=== PATIENT | female | born 1990 | race Caucasian/White ===

== ENCOUNTER 2017-10-27 11:23 | Inpatient (IN) | payer BC, OTHER ==
[2017-10-27] MEDS ORDERED: Penicillin G Potassium IV* 5,000,000 UNITS in NS 0.9% 100 ML* 100 ML IVPB ONE (12:17)
--- NOTE | 2017-10-27 12:26 | HP ---
General Information - General Information Maternal Age: 27 Grav: 1 Para: 0 SAB: 0 IEA: 0 Estimated Due Date: 11/02/17 Determined By: LMP Gestational Age in Weeks and Days: 39 Weeks and 1 Days Maternal Blood Type and Rh: O Positive - Results this Serology/RPR Result: Non-Reactive Rubella Result: Immune HBsAg Result: Negative HIV Result: Negative GBS Culture Result: Positive Past Medical History Delivery History Comment: primip Pertinent Past Medical History: Non-Contributory Pertinent Past Surgical History: None Pertinent Family History: Non-Contributory - Antepartal Records Antepartal Records: Reviewed, Uncomplicated Review of Systems Constitutional: Comfortable CV Complaint: No Respiratory: Shortness of Breath: No Genitourinary: Leaking Fluid Musculoskeletal: Contractions Neurological: No Headache Movement: Normal - Comments mild nausea. Soft stool earlier today Exam - Measurements Height: 5 ft 8 in Weight: 190 lb Weight in lbs: 190 Body Mass Index (BMI): 28.8 Pre- Weight: 150 lb Weight Gained This : 40 lbs and 0 ozs - Exam Abdomen: No Upper Quadrant Pain Heart: Normal Rhythm/Heart Sounds HEENT: No Significant Findings Lungs: Clear Bilaterally Reflexes: DTR 2+ Thyroid: No Thyromegaly Other Exam Findings: Breasts: soft, no masses Trace edema of ankles - Abdominal Exam Abdomen Exam Comment: EFW 8.5 lbs - Membranes Membrane Status: SROM Hours Since SROM: SROM 0130 10/27/17 - Ultrasound/Biophysical Profile Ultrasound Status: Not Done EFM Findings - External Monitor Findings Baseline Heart Rate: 135 External Monitor Findings: Accelerations Present, No Pattern of Variable or Late Decelerations, Variability Moderate External Monitor Findings Comment: category 1 Contractions: Regular, Mild, Moderate, 45-90 Seconds Contraction Frequency: every 2-3 minutes Assessment/Plan - Reason for Visit Reason for Visit: SROM, contractions - Obstetrical Risk Factors Obstetrical Risk Factors: GBS Positive - Plan Plan: Active Labor Plan Comment: will admit, start PCN prophylaxis. Anticipate vaginal delivery - Date/Time of Admission Date of Admission: 10/27/17 Time of Admission: 12:27
[2017-10-27 12:57] LABS: ABS Basophils 0 10^3/ul (0-0.2); ABS Eosinophils 0.1 10^3/ul (0-0.6); ABS Lymphocytes 2.1 10^3/ul (1.0-4.8); ABS Monocytes 0.8 10^3/ul (0-0.8); ABS Neutrophils 9.3 10^3/ul (1.5-7.7); ABS Nucleated RBC 0 10^3/ul; Eosinophil % 0.7 % (0-6); Hematocrit 39 % (35-47); Hemoglobin 13.2 g/dl (12.0-16.0); Mean Corpuscular HGB Conc 34 g/dl (31-36); Mean Corpuscular Hemoglobin 27 pg (27-31); Mean Corpuscular Volume 80 fL (80-97); Mean Platelet Volume 8 um3 (7.4-10.4); Nucleated Red Blood Cells % 0.1; Platelet Count 205 10^3/ul (150-450); Red Blood Count 4.89 10^6/ul (4.0-5.4); Red Cell Distribution Width 13 % (10.5-15); White Blood Count 12.3 10^3/ul (3.5-10.8)
[2017-10-27] MEDS: Penicillin G Potassium IV* 2,500,000 UNITS in NS 0.9% 100 ML* 100 ML IVPB SCH ×2 (17:00→21:10)
[2017-10-27] MEDS ORDERED: Promethazine INJ(RESTRICTED)* 25 MG/ML 1 ML VIAL IV PRN (18:53)
[2017-10-27] MEDS ORDERED: Nalbuphine* 20 MG/ML 1 ML VIAL IV ONE (18:54)
[2017-10-28] MEDS: Penicillin G Potassium IV* 2,500,000 UNITS in NS 0.9% 100 ML* 100 ML IVPB SCH ×4 (01:06→13:46)
[2017-10-28] MEDS ORDERED: OBEPIDURAL* 250 ML EPIDURAL ONE (02:48)
[2017-10-28] MEDS ORDERED: EPHEDrine (Pressors)* 50 MG/ML VIAL IV PUSH PRN ×2 (03:51)
[2017-10-28] MEDS ORDERED: Famotidine TAB* 20 MG PO PRN (03:51)
[2017-10-28] MEDS ORDERED: Phenylephrine IV* 40 MCG/ML 10 ML SYRINGE IV PUSH PRN ×2 (03:51)
[2017-10-28] MEDS ORDERED: Sodium Citrate/Citric Acid* 15 ML UDC PO PRN (03:51)
[2017-10-28] MEDS ORDERED: OBEPIDURAL* 250 ML EPIDURAL SCH (04:00)
[2017-10-28] MEDS ORDERED: Oxytocin in LR* 20 UNITS/1,000 ML BAG IVPB ONE ×3 (12:23→16:57)
[2017-10-28] MEDS ORDERED: Dibucaine 1% 28.35 GM TUBE ONE (12:30)
[2017-10-28] MEDS ORDERED: Witch Hazel PAD* JAR ONE (12:31)
[2017-10-28] MEDS ORDERED: Methylergonovine INJ* 0.2 MG/ML 1ML AMP ONE (12:31)
[2017-10-28] MEDS ORDERED: Misoprostol TAB* 200 MCG ONE (12:34)
[2017-10-28] MEDS ORDERED: Glycerin ADULT SUPP PR PRN (12:49)
[2017-10-28] MEDS: Docusate CAP* 100 MG PO SCH ×2 (14:31→21:09)
[2017-10-28] MEDS: Ibuprofen TAB* 600 MG PO PRN ×2 (14:59→21:09)
[2017-10-28] MEDS: Acetaminophen TAB* 325 MG PO PRN ×2 (18:39→23:16)
[2017-10-28] MEDS: Witch Hazel PAD* JAR TOPICAL PRN (18:40)
[2017-10-28] MEDS: Dibucaine 1% 28.35 GM TUBE PR PRN (18:41)
[2017-10-28] MEDS ORDERED: Oxytocin in LR* 20 UNITS/1,000 ML BAG IVPB SCH (20:00)
[2017-10-29] MEDS: Ibuprofen TAB* 600 MG PO PRN ×3 (04:43→19:45)
[2017-10-29 06:45] LABS: ABS Basophils 0 10^3/ul (0-0.2); ABS Eosinophils 0.2 10^3/ul (0-0.6); ABS Lymphocytes 1.9 10^3/ul (1.0-4.8); ABS Monocytes 0.8 10^3/ul (0-0.8); ABS Neutrophils 8.9 10^3/ul (1.5-7.7); ABS Nucleated RBC 0 10^3/ul; Eosinophil % 1.6 % (0-6); Hematocrit 27 % (35-47); Hemoglobin 9.2 g/dl (12.0-16.0); Lymphocyte % 16.4 % (25-47); Mean Corpuscular HGB Conc 35 g/dl (31-36); Mean Corpuscular Hemoglobin 28 pg (27-31); Mean Corpuscular Volume 80 fL (80-97); Mean Platelet Volume 8 um3 (7.4-10.4); Nucleated Red Blood Cells % 0; Platelet Count 153 10^3/ul (150-450); Red Blood Count 3.34 10^6/ul (4.0-5.4); Red Cell Distribution Width 13 % (10.5-15); White Blood Count 11.9 10^3/ul (3.5-10.8)
[2017-10-29] MEDS: Ferrous Gluconate TAB* 324 MG TAB PO SCH ×2 (09:10→21:06)
[2017-10-29] MEDS: Docusate CAP* 100 MG PO SCH ×3 (09:10→21:06)
[2017-10-29] MEDS: Witch Hazel PAD* JAR TOPICAL PRN (14:26)
[2017-10-29] MEDS: Dibucaine 1% 28.35 GM TUBE PR PRN (14:26)
[2017-10-30] MEDS: Ibuprofen TAB* 600 MG PO PRN ×3 (02:14→14:03)
[2017-10-30 07:23] VITALS: BP 124/71
[2017-10-30] MEDS: Ferrous Gluconate TAB* 324 MG TAB PO SCH (08:21)
[2017-10-30] MEDS: Docusate CAP* 100 MG PO SCH ×2 (08:21→14:03)
[2017-10-30] MEDS: Acetaminophen TAB* 325 MG PO PRN ×2 (10:39→16:23)
== END 2017-10-30 17:59 | disposition home or self-care (01) | DRG 774 ==
LOC: MCHOBOUT 11:23 → MCHOB 12:16
PROVIDERS: ADMIT Midwife; ATTEND Midwife
PROC: 10E0XZZ Delivery of Products of Conception, External Approach (ICD-10-PCS; principal; 2017-10-28)
PROC: 0W8NXZZ Division of Female Perineum, External Approach (ICD-10-PCS; 2017-10-28)
DX: O42.12 Full-term premature rupture of membranes, onset of labor more than 24 hours following rupture (principal); O72.1 Other immediate postpartum hemorrhage; O99.824 Streptococcus B carrier state complicating childbirth; D64.9 Anemia, unspecified; O77.0 Labor and delivery complicated by meconium in amniotic fluid; O90.81 Anemia of the puerperium; Z3A.39 39 weeks gestation of pregnancy; Z37.0 Single live birth
CPT/HCPCS: 36415; 84112; 85025; 86850; 86900; 86901; A9270-GY; J2210; J2300; J2540; J2550

== ENCOUNTER 2020-12-22 13:29 | Inpatient (IN) ==
[2020-12-22] MEDS ORDERED: Buffered Lidocaine 1% SYRIN 1 ml INTRADERM ONE (13:55)
[2020-12-22] MEDS ORDERED: Lactated Ringers 1000 ml BAG 1,000 ML IV ONE (13:55)
[2020-12-22] MEDS ORDERED: Lactated Ringers 1000 ml BAG 1,000 ML IV SCH (14:00)
[2020-12-22] MEDS ORDERED: Penicillin G Potassium IV 5,000,000 UNITS in NS 0.9% 100 ml BAG 100 ML IVPB ONE (14:00)
[2020-12-22 14:22] LABS: ABS Lymphocytes 0.5 10^3/ul (1.0-4.8); ABS Monocytes 0.8 10^3/ul (0-0.8); ABS Neutrophils 15.3 10^3/ul (1.5-7.7); Eosinophil % 0.1 %; Hematocrit 36 % (35-47); Hemoglobin 12.1 g/dL (12.0-16.0); Lymphocyte % 2.9 %; Mean Corpuscular HGB Conc 34 g/dL (31-36); Mean Corpuscular Hemoglobin 29 pg (27-31); Mean Corpuscular Volume 84 fL (80-97); Mean Platelet Volume 7.2 fL (7.4-10.4); Platelet Count 188 10^3/uL (150-450); Red Blood Count 4.25 10^6 /uL (3.70-4.87); Red Cell Distribution Width 13 % (10-15); White Blood Count 16.7 10^3/uL (3.5-10.8)
[2020-12-22] MEDS ORDERED: Oxytocin in LR 20 UNITS/1,000 ML BAG IVPB ONE (14:46)
[2020-12-22] MEDS ORDERED: Witch Hazel PAD JAR TOPICAL PRN (15:18)
[2020-12-22] MEDS ORDERED: Glycerin ADULT 2.4 gm SUPP PR PRN (15:18)
[2020-12-22] MEDS ORDERED: Dibucaine 1% OINT 28.35 GM TUBE PR PRN (15:18)
[2020-12-22] MEDS ORDERED: Oxytocin in LR 20 UNITS/1,000 ML BAG IVPB SCH (16:00)
[2020-12-22] MEDS ORDERED: Penicillin G Potassium IV 3,000,000 UNITS in NS 0.9% 100 ml BAG 100 ML IVPB SCH (18:00)
[2020-12-22 20:35] LABS: Urine Benzodiazepine Screen None Detected (None Detect); Urine Cannabinoids Screen None Detected (None Detect); Urine Opiates Screen None Detected (None Detect)
[2020-12-23 05:52] LABS: Hematocrit 35 % (35-47); Hemoglobin 11.9 g/dL (12.0-16.0); Mean Corpuscular HGB Conc 34 g/dL (31-36); Mean Corpuscular Hemoglobin 28 pg (27-31); Mean Corpuscular Volume 83 fL (80-97); Mean Platelet Volume 6.9 fL (7.4-10.4); Platelet Count 192 10^3/uL (150-450); Red Cell Distribution Width 13 % (10-15); White Blood Count 24.8 10^3/uL (3.5-10.8)
[2020-12-23 06:08] LABS: ABS Basophils 0.1 10^3/ul (0-0.2); ABS Eosinophils 0.1 10^3/ul (0-0.6); ABS Lymphocytes 1.9 10^3/ul (1.0-4.8); ABS Monocytes 1.4 10^3/ul (0-0.8); ABS Neutrophils 21.3 10^3/ul (1.5-7.7); Eosinophil % 0.4 %; Lymphocyte % 7.8 %
[2020-12-23] MEDS ORDERED: Measles, Mumps,Rubella VACC 0.5 ML/VIAL SUBCUT ONE (09:00)
[2020-12-24 07:30] VITALS: BP 100/59
[2020-12-24] MEDS ORDERED: Measles, Mumps,Rubella VACC 0.5 ML/VIAL ONE (10:06)
== END 2020-12-24 12:30 | disposition home or self-care (01) | DRG 807 ==
LOC: MCHOBOUT 13:29 → MCHOB 13:51
PROVIDERS: ADMIT Midwife; ATTEND Midwife